=== PATIENT | male | born 1980 | race Caucasian/White ===

== ENCOUNTER 2016-08-19 18:00 | Emergency (ER) | payer OTHER ==
--- NOTE | ~2016-08-19 | ER ---
PATIENT'S NAME: VIPUL BATESONY Gerald [facility] AGE: 36 Y [address] ROOM: [place] [address] LOCATION: [facility] ADMIT DATE: 08/19/2016 ER/Outpatient Report DISCHARGE DATE: 08/19/2016 FAMILY PHYSICIAN: Simon Manuel MD ATTENDING PHYSICIAN: Aaron Parra TIME OF ARRIVAL: 1759 hours. TIME OF EXAM: 1819 hours. CHIEF COMPLAINT: Epigastric pain. HISTORY OF PRESENT ILLNESS: The patient states 11 o'clock this morning he had an episode of upper abdominal midepigastric pain. He took some aspirin at that time and it went away. He laid down and took a nap. He states he has been sick with sinusitis and ear infections so he is home. He states that he got up at 2 o'clock, was doing fine, and then about 4 o'clock the pain all came back again. It stays right in the midepigastric upper abdominal area. He states he took four 325 mg aspirins at that time. He describes the pain as being a sore muscle. He denies being nauseated, has not vomited, and had normal bowel movements. Denies any change in his urinary process. He did get diaphoretic and short of breath when the pain initiated at 11 o'clock, but did not have that at 4 o'clock when it started. He has not had any type of pain like this before. ALLERGIES: HE HAS NO KNOWN ALLERGIES. CURRENT MEDICATIONS: Current medications are on his chart and reviewed by me. PAST MEDICAL HISTORY: Allergies, recurrent sinusitis, and otitis media. PAST SURGERIES: Umbilical hernia repair and vasectomy. SOCIAL HISTORY: He lives at home with his . Denies use of tobacco, drugs, and rarely drinks alcohol. FAMILY HISTORY: PATIENT'S NAME: BREANNA BATES [facility] AGE: 36 Y [address] ROOM: [place] [address] LOCATION: [facility] ADMIT DATE: 08/19/2016 ER/Outpatient Report DISCHARGE DATE: 08/19/2016 FAMILY PHYSICIAN: Simon Manuel MD ATTENDING PHYSICIAN: Aaron Parra He states his mom has had a heart attack and has a pacemaker. He states his dad has hypertension. REVIEW OF SYSTEMS: All negative other than those mentioned in the HPI. PHYSICAL EXAMINATION: VITAL SIGNS: He weighed 151.6 kg. Blood pressure is 130/74, pulse of 100, respirations 16, temp of 98, and O2 sat was 95% on room air. GENERAL: He is awake, alert, and oriented x4. SKIN: [place], warm, and dry. RESPIRATIONS: Even and nonlabored. TMs are dull. Nasal is boggy. Oropharynx is clear. NECK: Supple. No lymphadenopathy. LUNGS: Lung sounds are clear throughout. HEART: Regular rate and rhythm. ABDOMEN: Soft and nondistended. Bowel sounds are present. He has no tenderness with deep palpation. No organomegaly noted. No masses felt. LABS AND X-RAYS: EKG was completed. It shows a sinus rhythm. Lab work was done. CBC is within normal limits. Chem panel is normal other than his AST is elevated at 231, ALT is elevated at 253, his magnesium was 2, CPK is 64, CK-MB was less than 0.5, and troponin was negative. Amylase was 33 with a lipase of 112. I did do an ultrasound of his gallbladder. vibration technician reports that he does have a fatty liver and enlarged spleen, but the gallbladder all appears within normal limits. IMPRESSION: Transaminitis. PLAN: Home, rest, fluids, finish out the antibiotics. Encouraged him to follow up with his primary provider next week to make sure that the liver enzymes are improving and for any other possible tests that may need to be done. He and his verbalized understanding and agreed with plan of care. IOANA FUCHS APRN FOR MD AVIVA MOYA/kimmyl PATIENT'S NAME: BREANNA BATES [facility] AGE: 36 Y [address] ROOM: [place], [place] [address] LOCATION: [facility] ADMIT DATE: 08/19/2016 ER/Outpatient Report DISCHARGE DATE: 08/19/2016 FAMILY PHYSICIAN: Simon Manuel MD ATTENDING PHYSICIAN: Aaron Parra /[id number] d: 08/20/16225 t: 08/31/16824, OUTPATIENT REPORT
[2016-08-19 18:45] LABS: BASOPHIL # 0.1 K/uL (0.0-0.2); BASOPHIL % 0.6 %; EOSINOPHIL # 0.2 K/uL (0.0-0.5); EOSINOPHIL % 2.1 %; HEMOGLOBIN 15.7 g/dL (12.0-17.0); IMMATURE GRANULOCYTE % 0.3 %; LYMPHOCYTE # 1.4 K/uL (0.8-4.0); LYMPHOCYTE % 15.3 %; MCH 29.8 pg (27.0-34.0); MCHC 34.1 gm/dL (32.0-36.5); MCV 87.3 fl (83.0-98.0); MONOCYTE # 0.5 K/uL (0.0-1.0); MONOCYTE % 5.1 %; MPV 9.8 fl (9.4-12.4); NEUTROPHIL % 76.6 %; NRBC % 0 /100WBC (0-0.00); PLATELET COUNT 194 K/uL (150-450); RBC 5.27 M/uL (4.00-6.00); RDW-CV 12.3 % (11.9-14.6); WBC 9.1 K/uL (4.0-11.0)
[2016-08-19 18:56] LABS: PTT 24 SECONDS (25-32)
[2016-08-19 19:05] LABS: ALBUMIN 3.8 gm/dL (3.5-5.0); ALK PHOS 90 IU/L (33-138); ALT 253 IU/L (12-78); ANION GAP 12.9 (10.0-19.0); AST 231 IU/L (10-40); BLOOD UREA NITROGEN 12 mg/dL (6-24); CALCIUM 8.5 mg/dL (8.5-10.5); CHLORIDE 107 mMol/L (96-110); CO2 25 mMol/L (22-32); CPK 64 IU/L (35-332); ESTIMATED GFR (MDRD EQUATION) > 60; POTASSIUM 3.9 mMol/L (3.7-5.1); SODIUM 141 mMol/L (135-145); TOTAL BILIRUBIN 0.5 mg/dL (0.0-1.5); TOTAL PROTEIN 7.5 g/dL (6.0-8.4)
== END 2016-08-19 20:02 | disposition disaster alternative care site (69) ==
LOC: GMED 18:00
PROVIDERS: Emergency Medicine
DX: R74.0 Nonspecific elevation of levels of transaminase and lactic acid dehydrogenase [LDH] (principal); Z98.890 Other specified postprocedural states